=== PATIENT | female | born 1970 | race Hispanic/Latino ===

== ENCOUNTER 2021-09-27 12:05 | Observation (INO) | payer OTHER ==
[~2021-09-27] VITALS: Ht 172.7 cm; Wt 61.7 kg
[2021-09-27 12:23] LABS: BASOPHILS # (AUTO) 0.1 (0.0-0.1); BASOPHILS % 1.5 % (0.0-1.0); EOSINOPHILS # (AUTO) 0.1 (0.0-0.4); EOSINOPHILS % 2.1 % (0.0-6.0); HEMATOCRIT 39.1 % (34.2-44.1); LYMPHOCYTES # (AUTO) 1.7 (1.0-3.2); LYMPHOCYTES % 31.7 % (18.0-39.1); MEAN CORPUSCULAR HGB CONC 33.2 g/dL (31-35); MEAN CORPUSCULAR VOLUME 96.3 fL (81-99); MONOCYTES # (AUTO) 0.4 (0.2-0.8); MONOCYTES % 7.6 % (4.4-11.3); NEUTROPHILS % 57.1 % (38.7-80.0); PLATELET COUNT 267 x10e3/uL (140-360); RED BLOOD COUNT 4.06 x10e6/uL (3.6-5.1)
[2021-09-27 12:32] LABS: INR 1.06; PROTHROMBIN TIME 14.6 seconds (11.9-14.5)
[2021-09-27 12:42] LABS: ALBUMIN 4.3 g/dL (3.5-5.0); ALBUMIN/GLOBULIN RATIO 1.1 (0.8-2.0); ANION GAP 9.2 mmol/L (8-16); CALCIUM 9.6 mg/dL (8.4-10.2); CREATININE, SERUM 0.82 mg/dL (0.57-1.11); POTASSIUM 4.2 mmol/L (3.5-5.1)
[2021-09-27 12:48] LABS: CREATINE KINASE MB 1.9 ng/mL (0-5.0)
[2021-09-27] MEDS ORDERED: ONDANSETRON HCL INJ 2MG/ML 2ML 2 MG/ML VIAL IV PRN (14:00)
[2021-09-27] MEDS ORDERED: FAMOTIDINE 20 MG/2 ML VIAL IV SCH (14:00)
[2021-09-27] MEDS ORDERED: ASPIRIN 81 MG CHEW TAB PO ONE (14:30)
[2021-09-27 15:08] VITALS: BP 105/60
[2021-09-27 15:10] VITALS: BP 105/60
[2021-09-27 15:48] VITALS: BP 105/60
[2021-09-27 17:34] LABS: CREATINE KINASE MB 1.6 ng/mL (0-5.0)
[2021-09-27] MEDS ORDERED: ACETAMINOPHEN 325 MG TAB PO PRN (19:45)
[2021-09-27 20:00] VITALS: BP 105/60
[2021-09-27] MEDS: FAMOTIDINE 20 MG/2 ML VIAL IV SCH (20:03)
[2021-09-27 20:48] VITALS: BP 120/70
[2021-09-28] VITALS (7 sets, daily range): BP systolic 100–113; BP diastolic 50–61
[2021-09-28 06:49] LABS: BASOPHILS # (AUTO) 0.1 (0.0-0.1); BASOPHILS % 1.2 % (0.0-1.0); EOSINOPHILS # (AUTO) 0.2 (0.0-0.4); EOSINOPHILS % 5.1 % (0.0-6.0); HEMATOCRIT 38.4 % (34.2-44.1); HEMOGLOBIN 12.7 g/dL (12.0-16.0); LYMPHOCYTES # (AUTO) 1.7 (1.0-3.2); LYMPHOCYTES % 40.2 % (18.0-39.1); MEAN CORPUSCULAR HEMOGLOBIN 31.9 pg (28-32); MEAN CORPUSCULAR HGB CONC 33.1 g/dL (31-35); MEAN CORPUSCULAR VOLUME 96.5 fL (81-99); MONOCYTES # (AUTO) 0.5 (0.2-0.8); MONOCYTES % 10.8 % (4.4-11.3); NEUTROPHILS # (AUTO) 1.8 (2.1-6.9); NEUTROPHILS % 42.5 % (38.7-80.0); PLATELET COUNT 250 x10e3/uL (140-360); RED BLOOD COUNT 3.98 x10e6/uL (3.6-5.1); RED CELL DISTRIBUTION WIDTH 11.9 % (11.7-14.4)
[2021-09-28] MEDS ORDERED: CARBATROL200 MG PO (07:01)
[2021-09-28 07:10] LABS: ALBUMIN/GLOBULIN RATIO 1.1 (0.8-2.0); ANION GAP 7.1 mmol/L (8-16); CALCIUM 9.4 mg/dL (8.4-10.2); CHOL/HDL RATIO 3.5 (3.0-3.6); CREATININE, SERUM 0.84 mg/dL (0.57-1.11); POTASSIUM 4.1 mmol/L (3.5-5.1)
[2021-09-28 07:27] LABS: CREATINE KINASE MB 1.2 ng/mL (0-5.0)
[2021-09-28] MEDS: FAMOTIDINE 20 MG/2 ML VIAL IV SCH ×2 (07:44→21:00)
[2021-09-28] MEDS: ASPIRIN 81 MG ENTERIC COATED PO SCH (09:00)
[2021-09-28] MEDS ORDERED: CARBAMAZEPINE 200 MG TAB PO SCH ×3 (09:00→13:00)
[2021-09-28 14:34] LABS: CREATINE KINASE MB 1.5 ng/mL (0-5.0)
[2021-09-28] MEDS: ARTIFICIAL TEARS (OPTH) 15 ML BTL OD SCH ×2 (18:00→21:00)
[2021-09-28] MEDS ORDERED: ATORVASTATIN 40 MG TAB PO SCH (21:00)
[2021-09-28] MEDS ORDERED: IOPAMIDOL 370 MG/ML 200 ML INFUS..BTL INJ ONE (21:15)
[2021-09-28] MEDS ORDERED: SODIUM CHLORIDE 0.9% 100 ML ONE (21:16)
[2021-09-28] MEDS ORDERED: SODIUM CHLORIDE 0.9% 50ML 50 ML ONE (21:44)
[2021-09-29] VITALS (7 sets, daily range): BP systolic 108–117; BP diastolic 52–87
[2021-09-29 05:36] LABS: BASOPHILS # (AUTO) 0.1 (0.0-0.1); BASOPHILS % 1.2 % (0.0-1.0); EOSINOPHILS # (AUTO) 0.2 (0.0-0.4); EOSINOPHILS % 4.6 % (0.0-6.0); HEMATOCRIT 39.2 % (34.2-44.1); LYMPHOCYTES % 40.8 % (18.0-39.1); MEAN CORPUSCULAR HEMOGLOBIN 31.8 pg (28-32); MEAN CORPUSCULAR HGB CONC 33.2 g/dL (31-35); MEAN CORPUSCULAR VOLUME 95.8 fL (81-99); MONOCYTES # (AUTO) 0.5 (0.2-0.8); MONOCYTES % 9.1 % (4.4-11.3); NEUTROPHILS # (AUTO) 2.2 (2.1-6.9); NEUTROPHILS % 44.1 % (38.7-80.0); PLATELET COUNT 250 x10e3/uL (140-360); RED BLOOD COUNT 4.09 x10e6/uL (3.6-5.1)
[2021-09-29 06:03] LABS: ANION GAP 8.3 mmol/L (8-16); CALCIUM 9.3 mg/dL (8.4-10.2); CHOL/HDL RATIO 3.5 (3.0-3.6); CREATININE, SERUM 0.87 mg/dL (0.57-1.11); POTASSIUM 4.3 mmol/L (3.5-5.1)
[2021-09-29 06:23] LABS: THYROID STIMULATING HORMONE 2.145 uIU/mL (0.350-4.940)
[2021-09-29] MEDS: ARTIFICIAL TEARS (OPTH) 15 ML BTL OD SCH ×5 (08:57→17:53)
[2021-09-29] MEDS: ASPIRIN 81 MG ENTERIC COATED PO SCH (08:59)
[2021-09-29] MEDS ORDERED: CARBAMAZEPINE 200 MG TAB PO SCH (09:00)
[2021-09-29] MEDS: FAMOTIDINE 20 MG/2 ML VIAL IV SCH (09:00)
[2021-09-29] MEDS ORDERED: ONDANSETRON HCL 4 MG ORAL DISINTEGRATING TAB PO PRN (10:45)
[2021-09-29] MEDS ORDERED: FAMOTIDINE 20 MG TAB PO SCH (11:00)
[2021-09-29] MEDS ORDERED: PREDNISONE 20 MG TAB PO SCH (18:00)
[2021-09-29] MEDS ORDERED: Atorvastatin PO (18:18)
[2021-09-29] MEDS ORDERED: VALACYCLOVIR500 MG PO (18:18)
[2021-09-29] MEDS ORDERED: ASPIRIN EC81 MG PO (18:18)
[2021-09-29] MEDS ORDERED: FAMOTIDINE20 MG PO (18:18)
[2021-09-29] MEDS ORDERED: PREDNISONE20 MG PO (18:18)
[2021-09-29] MEDS ORDERED: VALACYCLOVIR HCL 500 MG TAB PO SCH (18:30)
== END 2021-09-29 19:00 | disposition home or self-care (01) ==
LOC: ER 12:12 → ERHOLD 14:05 → MED/SURG 14:39
PROVIDERS: ADMIT Internal Medicine; ATTEND Internal Medicine
DX: G51.0 Bell's palsy (principal); G40.909 Epilepsy, unspecified, not intractable, without status epilepticus; I65.23 Occlusion and stenosis of bilateral carotid arteries; E78.5 Hyperlipidemia, unspecified; R09.89 Other specified symptoms and signs involving the circulatory and respiratory systems; Z83.3 Family history of diabetes mellitus; Z82.49 Family history of ischemic heart disease and other diseases of the circulatory system; Z20.822 Contact with and (suspected) exposure to COVID-19
CPT/HCPCS: 36415 ×3; 70450; 70496; 70498; 70551; 71045; 80048; 80053 ×2; 80061 ×2; 82550 ×2; 82553 ×2; 83735; 84443; 84484 ×2; 85025 ×3; 85610; 85730; 93005; 93306; 93880; 94799 ×2; 99284; G0378 ×3; J7050; J7512; U0002; Q9967